=== PATIENT | female | born 1935 | race Caucasian/White ===

== ENCOUNTER 2017-06-05 08:46 | Inpatient (IN) | payer MEDICARE ==
[~2017-06-05] VITALS: Ht 152.4 cm; Wt 77.8 kg
[~2017-06-05 08:46] MED LIST: ALPHAGAN 10 ML10 ML OP; AMARYL4 MG PO; AMLODIPINE5 MG PO; ASPIRIN81 M1 PO; HYDROCODONE BIT1 T11 PO; LIVALO4 MG PO; LOSARTAN POTASS25 M1 PO; LUMIGAN 2.5 ML2.5 ML OPH; MELOXICAM15 MG PO; MULTIVITAMIN FO1 CAP PO; NOVOLOG FLEX100 U/ML; PRILOSEC10 MG PO; STOOL SOFTENER100 MG PO; SYSTANE 0.4%-0.1 SOL OP
[2017-06-05 08:54] VITALS: BP 148/78
[2017-06-05 10:33] LABS: BASO % 0.6 % (0.0-1.0); EOS # 0.1 10*3/uL (0.0-0.4); EOS % 1.8 % (1.0-4.0); HEMATOCRIT 36.3 % (37.0-47.0); HEMOGLOBIN 11.9 g/dl (12.0-16.0); LYMPH # 1.3 10*3/uL (1.3-4.4); LYMPH % 19.5 % (27.0-41.0); MEAN CELL VOLUME 99.2 fl (81.0-99.0); MEAN CORPUSCULAR HGB 32.5 pg (27.0-31.0); MEAN CORPUSCULAR HGB CONC 32.8 g/dl (33.0-37.0); MEAN PLATELET VOLUME 11.2 fl (9.6-12.3); MONO # 0.7 10*3/uL (0.1-1.0); MONO % 11.2 % (3.0-9.0); NEUT # 4.4 10*3/uL (2.3-7.9); NEUT % 66.4 % (47.0-73.0); PLATELET COUNT AUTOMATED 132 10*3/uL (130-400); RED BLOOD COUNT 3.66 10*6/uL (4.10-5.10); RED CELL DISTRI WIDTH 14.6 % (0-14.5); WHITE BLOOD COUNT 6.6 10*3/uL (4.8-10.8)
[2017-06-05 10:44] LABS: ACT PARTIAL THROMBO TIME 24.1 SECONDS (20.8-31.5); INTERNATIONAL NORM RATIO 0.9 (2.0-3.5)
[2017-06-05 10:48] LABS: ALBUMIN 3.3 gm/dl (3.1-4.5); CREATININE 1.33 mg/dL (0.55-1.02); POTASSIUM 4.4 mmol/L (3.5-5.1); TOTAL PROTEIN 6.5 gm/dL (6.4-8.2)
[2017-06-05] MEDS ORDERED: ALLOPURINOL100 MG PO (11:15)
[2017-06-05] MEDS ORDERED: LASIX40 MG PO (11:19)
[2017-06-05] MEDS ORDERED: TENORMIN25 M1 PO (11:19)
[2017-06-05] MEDS ORDERED: MAGNESIUM400 M1 PO (11:20)
[2017-06-05] MEDS ORDERED: LIPITOR10 MG PO (11:20)
[2017-06-05] MEDS ORDERED: NEURONTIN300 MG PO (11:21)
[2017-06-05] MEDS ORDERED: NEURONTIN600 MG PO (11:21)
[2017-06-05] MEDS ORDERED: NOVOLOG FL100 UNIT/1 SQ (11:22)
[2017-06-05] MEDS ORDERED: LANTUS SOL100 UNIT/1 SQ (11:22)
[2017-06-05] MEDS ORDERED: TRAD5TAB1 PO (11:23)
[2017-06-05] MEDS ORDERED: XALATAN 0.005%2.5 ML INTRAOC (11:23)
[2017-06-05] MEDS ORDERED: TRAMADOL HCL50 MG PO (11:25)
[2017-06-05] MEDS ORDERED: ARTHRITIS PAIN650 M3 PO (11:26)
[2017-06-05] MEDS ORDERED: COREG3.125 MG PO (12:17)
[2017-06-05] MEDS ORDERED: B121000 MCG/1 IM (12:31)
[2017-06-05 16:00] VITALS: BP 134/50
[2017-06-05 20:00] VITALS: BP 140/48
[2017-06-06] VITALS: BP 125/49
[2017-06-06 06:16] LABS: BASO % 0.6 % (0.0-1.0); EOS # 0.2 10*3/uL (0.0-0.4); HEMATOCRIT 34.4 % (37.0-47.0); HEMOGLOBIN 11.5 g/dl (12.0-16.0); LYMPH # 1.7 10*3/uL (1.3-4.4); LYMPH % 30.7 % (27.0-41.0); MEAN CELL VOLUME 99.4 fl (81.0-99.0); MEAN CORPUSCULAR HGB 33.2 pg (27.0-31.0); MEAN CORPUSCULAR HGB CONC 33.4 g/dl (33.0-37.0); MEAN PLATELET VOLUME 11.3 fl (9.6-12.3); MONO # 0.8 10*3/uL (0.1-1.0); MONO % 14.6 % (3.0-9.0); NEUT # 2.7 10*3/uL (2.3-7.9); NEUT % 50.7 % (47.0-73.0); PLATELET COUNT AUTOMATED 128 10*3/uL (130-400); RED BLOOD COUNT 3.46 10*6/uL (4.10-5.10); RED CELL DISTRI WIDTH 14.7 % (0-14.5); WHITE BLOOD COUNT 5.4 10*3/uL (4.8-10.8)
[2017-06-06 06:28] LABS: CREATININE 1.29 mg/dL (0.55-1.02); PHOSPHOROUS 3.3 mg/dL (2.5-4.9); POTASSIUM 4.2 mmol/L (3.5-5.1)
[2017-06-06 06:35] LABS: THYROID STIM HORMONE (HS) 0.72 uIU/ml (0.358-4.75)
[2017-06-06 07:48] LABS: VITAMIN D, 25-HYDROXY 27.1 ng/mL (30-100)
[2017-06-06 08:00] VITALS: BP 170/68
[2017-06-06 12:00] VITALS: BP 150/52
[2017-06-06 13:02] LABS: BILIRUBIN NEGATIVE (NEGATIVE); BLOOD NEGATIVE (NEGATIVE); CLARITY CLEAR (CLEAR); COLOR YELLOW (YELLOW); GLUCOSE NEGATIVE (NEGATIVE); KETONE NEGATIVE (NEGATIVE); LEUKO ESTERASE NEGATIVE (NEGATIVE); NITRITE NEGATIVE (NEGATIVE); PH 5.5 (5.0-9.0); SPECIFIC GRAVITY <= 1.005 (1.005-1.030); UROBILINOGEN 0.2 E.U./dl (0.2-1.0)
[2017-06-06 13:19] LABS: BACTERIA TRACE
[2017-06-06 16:00] VITALS: BP 128/41
[2017-06-06 20:00] VITALS: BP 131/49
[2017-06-07] VITALS: BP 118/49
[2017-06-07 08:00] VITALS: BP 118/43
[2017-06-07 12:00] VITALS: BP 111/52
[2017-06-07 16:00] VITALS: BP 118/41
[2017-06-07 20:00] VITALS: BP 108/42
[2017-06-08] VITALS: BP 118/49
[2017-06-08 07:46] LABS: BASO % 0.6 % (0.0-1.0); EOS # 0.2 10*3/uL (0.0-0.4); HEMATOCRIT 34.3 % (37.0-47.0); HEMOGLOBIN 11.4 g/dl (12.0-16.0); LYMPH # 2.1 10*3/uL (1.3-4.4); LYMPH % 29.8 % (27.0-41.0); MEAN CELL VOLUME 96.6 fl (81.0-99.0); MEAN CORPUSCULAR HGB 32.1 pg (27.0-31.0); MEAN CORPUSCULAR HGB CONC 33.2 g/dl (33.0-37.0); MEAN PLATELET VOLUME 11.9 fl (9.6-12.3); NEUT # 3.6 10*3/uL (2.3-7.9); NEUT % 52.3 % (47.0-73.0); PLATELET COUNT AUTOMATED 136 10*3/uL (130-400); RED BLOOD COUNT 3.55 10*6/uL (4.10-5.10); RED CELL DISTRI WIDTH 14.6 % (0-14.5); WHITE BLOOD COUNT 6.9 10*3/uL (4.8-10.8)
[2017-06-08 08:00] VITALS: BP 90/46
[2017-06-08 12:00] VITALS: BP 128/50
[2017-06-08 16:00] VITALS: BP 123/46
[2017-06-08 20:00] VITALS: BP 119/43
[2017-06-09] VITALS: BP 119/40
[2017-06-09 07:50] LABS: CREATININE 1.41 mg/dL (0.55-1.02)
[2017-06-09 08:00] VITALS: BP 102/78
[2017-06-09 12:00] VITALS: BP 120/52
[2017-06-09] MEDS ORDERED: Vitamin D PO (13:16)
[2017-06-09] MEDS ORDERED: TRAMADOL HCL50 MG PO (13:16)
== END 2017-06-09 15:48 | disposition other institution (70) | DRG 556 ==
LOC: ED 08:46 → 4E 10:10 → EDHOLD 10:10 → 4E 10:19
PROVIDERS: Emergency Medicine; Internal Medicine; Internal Medicine Nephrology; ADMIT Internal Medicine
DX: M25.551 Pain in right hip (principal); E11.22 Type 2 diabetes mellitus with diabetic chronic kidney disease; E11.49 Type 2 diabetes mellitus with other diabetic neurological complication; E11.65 Type 2 diabetes mellitus with hyperglycemia; D53.9 Nutritional anemia, unspecified; N18.3 Chronic kidney disease, stage 3 (moderate); D72.810 Lymphocytopenia; I25.10 Atherosclerotic heart disease of native coronary artery without angina pectoris; E78.5 Hyperlipidemia, unspecified; M1A.9XX0 Chronic gout, unspecified, without tophus (tophi); R26.2 Difficulty in walking, not elsewhere classified; I12.9 Hypertensive chronic kidney disease with stage 1 through stage 4 chronic kidney disease, or unspecified chronic kidney disease; E55.9 Vitamin D deficiency, unspecified; E66.09 Other obesity due to excess calories; E53.8 Deficiency of other specified B group vitamins; Z88.1 Allergy status to other antibiotic agents; Z79.4 Long term (current) use of insulin; Z88.2 Allergy status to sulfonamides; Z68.33 Body mass index [BMI] 33.0-33.9, adult; Z79.82 Long term (current) use of aspirin; Z88.8 Allergy status to other drugs, medicaments and biological substances; Z90.710 Acquired absence of both cervix and uterus; Z83.3 Family history of diabetes mellitus; Z82.49 Family history of ischemic heart disease and other diseases of the circulatory system; Z98.49 Cataract extraction status, unspecified eye; Z95.1 Presence of aortocoronary bypass graft; Z79.899 Other long term (current) drug therapy

== ENCOUNTER 2019-04-02 11:07 | Emergency (ER) | payer MEDICARE ==
[~2019-04-02] VITALS: Ht 152.4 cm; Wt 76.7 kg
[~2019-04-02 11:07] MED LIST changes: +ALLOPURINOL100 MG PO; +ARTHRITIS PAIN650 M3 PO; +B121000 MCG/1 IM; +COREG3.125 MG PO; +LANTUS SOL100 UNIT/1 SQ; +LASIX40 MG PO; +LIPITOR10 MG PO; +MAGNESIUM400 M1 PO; +NEURONTIN300 MG PO; +NEURONTIN600 MG PO; +NOVOLOG FL100 UNIT/1 SQ; +TENORMIN25 M1 PO; +TRAD5TAB1 PO; +TRAMADOL HCL50 MG PO; +Vitamin D PO; +XALATAN 0.005%2.5 ML INTRAOC
== END 2019-04-02 12:25 | disposition home or self-care (01) ==
LOC: ED 11:07
DX: S80.812A Abrasion, left lower leg, initial encounter (principal); E11.9 Type 2 diabetes mellitus without complications; Z88.8 Allergy status to other drugs, medicaments and biological substances; Z88.2 Allergy status to sulfonamides; Z79.899 Other long term (current) drug therapy; Z79.4 Long term (current) use of insulin; Z79.82 Long term (current) use of aspirin; Z90.710 Acquired absence of both cervix and uterus; Z90.49 Acquired absence of other specified parts of digestive tract; W18.40XA Slipping, tripping and stumbling without falling, unspecified, initial encounter; Y93.89 Activity, other specified; Y92.89 Other specified places as the place of occurrence of the external cause; Y99.8 Other external cause status

== ENCOUNTER → 2019-08-02 | Outpatient (CLI) | payer MEDICARE | END | disposition home or self-care (01) | LOC: LAB 11:59 | DX: E83.59 Other disorders of calcium metabolism (principal) ==

== ENCOUNTER 2020-07-24 11:15 | Inpatient (IN) | payer MEDICARE ==
[~2020-07-24] VITALS: Ht 149.9 cm; Wt 77.7 kg
[~2020-07-24 11:15] MED LIST changes: -NOVOLOG FL100 UNIT/1 SQ; +NOVOLOG FL100 UNIT/2 SC
[2020-07-24 11:17] VITALS: BP 151/58
[2020-07-24 11:59] LABS: BASO % 0.3 % (0.0-1.0); EOS # 0.1 10*3/uL (0.0-0.4); EOS % 1.8 % (1.0-4.0); HEMATOCRIT 35.2 % (37.0-47.0); LYMPH # 1.4 10*3/uL (1.3-4.4); LYMPH % 22.6 % (27.0-41.0); MEAN CELL VOLUME 100.3 fl (81.0-99.0); MEAN CORPUSCULAR HGB 31.9 pg (27.0-31.0); MEAN CORPUSCULAR HGB CONC 31.8 g/dl (33.0-37.0); MEAN PLATELET VOLUME 11.6 fl (9.6-12.3); MONO # 0.7 10*3/uL (0.1-1.0); NEUT # 3.9 10*3/uL (2.3-7.9); NEUT % 63.8 % (47.0-73.0); PLATELET COUNT AUTOMATED 150 10*3/uL (130-400); RED BLOOD COUNT 3.51 10*6/uL (4.10-5.10); RED CELL DISTRI WIDTH 13.9 % (0-14.5); WHITE BLOOD COUNT 6.1 10*3/uL (4.8-10.8)
[2020-07-24 12:09] LABS: ACT PARTIAL THROMBO TIME 23.6 SECONDS (20.0-32.1); INTERNATIONAL NORM RATIO 0.9 (2.0-3.5)
[2020-07-24 12:16] LABS: ALBUMIN 3.5 gm/dl (3.1-4.5); ALKALINE PHOSPHATASE 68 U/L (45-117); BUN 40 mg/dl (7-24); CHLORIDE 107 mmol/L (98-107); CREATININE 1.44 mg/dL (0.55-1.02); LIPASE 75 U/L (73-393); POTASSIUM 4.6 mmol/L (3.5-5.1); SGOT/AST 11 IU/L (3-35); SGPT/ALT 25 U/L (12-78); SODIUM 138 mmol/L (136-145); TOTAL PROTEIN 6.5 gm/dL (6.4-8.2); TROPONIN I 0.018 ng/ml (<0.045)
[2020-07-24 13:07] LABS: BILIRUBIN Negative (Negative); BLOOD Negative (Negative); CLARITY Clear (Clear); COLOR Yellow (Yellow); GLUCOSE 1+ (Negative); KETONE Negative (Negative); LEUKO ESTERASE 1+ (Negative); NITRITE Negative (Negative); PH 7.5 (4.5-8.0); SPECIFIC GRAVITY 1.015 (1.001-1.030); UROBILINOGEN 0.2 E.U./dl (0.0-1.0)
[2020-07-24 13:30] LABS: BACTERIA 3+; EPITHELIAL CELLS 0-2
[2020-07-24] MEDS ORDERED: PREDNISONE20 M1 PO ×2 (13:37)
[2020-07-24] MEDS ORDERED: MACROBID100 M1 PO ×2 (13:37)
[2020-07-24 14:00] VITALS: BP 138/62
[2020-07-24 16:00] VITALS: BP 135/52
[2020-07-24] MEDS ORDERED: TYLENOL EXTRA500 MG PO (17:58)
[2020-07-24] MEDS ORDERED: CARVEDILOL3.125 MG PO (17:59)
[2020-07-24] MEDS ORDERED: HYDROCODONE-AC1 EAC1 PO (18:02)
[2020-07-24] MEDS ORDERED: VITAMIN D325 MCG PO (18:03)
[2020-07-24] MEDS ORDERED: ONDANSETRON HYDR4 MG PO (18:05)
[2020-07-24] MEDS ORDERED: VALSARTAN-HCTZ1 EAC2 PO (18:07)
[2020-07-24] MEDS ORDERED: MAGNESIUM OXID250 M2 PO (18:09)
[2020-07-24] MEDS ORDERED: LANTUS SOL100 UNIT/1 SC (18:12)
[2020-07-24 20:00] VITALS: BP 141/54
[2020-07-25] VITALS: BP 134/59
[2020-07-25 07:18] LABS: HEMATOCRIT 35.5 % (37.0-47.0); LYMPH # 1.2 10*3/uL (1.3-4.4); MEAN CELL VOLUME 100.3 fl (81.0-99.0); MEAN CORPUSCULAR HGB 31.6 pg (27.0-31.0); MEAN CORPUSCULAR HGB CONC 31.5 g/dl (33.0-37.0); MEAN PLATELET VOLUME 12.5 fl (9.6-12.3); MONO # 0.1 10*3/uL (0.1-1.0); MONO % 1.4 % (3.0-9.0); NEUT # 7.1 10*3/uL (2.3-7.9); PLATELET COUNT AUTOMATED 166 10*3/uL (130-400); RED BLOOD COUNT 3.54 10*6/uL (4.10-5.10); RED CELL DISTRI WIDTH 13.5 % (0-14.5); WHITE BLOOD COUNT 8.4 10*3/uL (4.8-10.8)
[2020-07-25 07:40] LABS: ALBUMIN 3.3 gm/dl (3.1-4.5); CREATININE 1.46 mg/dL (0.55-1.02); POTASSIUM 4.8 mmol/L (3.5-5.1); TOTAL PROTEIN 6.2 gm/dL (6.4-8.2)
[2020-07-25 07:46] LABS: FREE T4 1.12 ng/dl (0.76-1.46); THYROID STIM HORMONE (HS) 0.15 uIU/ml (0.358-4.75)
[2020-07-25 08:00] VITALS: BP 131/94
[2020-07-25 08:13] LABS: VITAMIN D, 25-HYDROXY 52.8 ng/mL (30-100)
[2020-07-25 10:20] VITALS: BP 132/68
[2020-07-25 12:00] VITALS: BP 116/40
[2020-07-25 16:00] VITALS: BP 110/51
[2020-07-25 20:00] VITALS: BP 112/51
[2020-07-26] VITALS: BP 110/44
[2020-07-26 08:00] VITALS: BP 105/43
[2020-07-26 08:51] VITALS: BP 110/50
[2020-07-26 12:00] VITALS: BP 149/52
[2020-07-26 16:00] VITALS: BP 137/53
[2020-07-26 20:00] VITALS: BP 107/40
[2020-07-27] VITALS: BP 102/45
[2020-07-27 08:00] VITALS: BP 141/47
[2020-07-27 11:30] LABS: BILIRUBIN Negative (Negative); BLOOD Negative (Negative); CLARITY Clear (Clear); COLOR Yellow (Yellow); GLUCOSE Trace (Negative); KETONE Negative (Negative); LEUKO ESTERASE Negative (Negative); NITRITE Negative (Negative); SPECIFIC GRAVITY 1.015 (1.001-1.030); UROBILINOGEN 0.2 E.U./dl (0.0-1.0)
[2020-07-27 11:38] LABS: EPITHELIAL CELLS 0-2
[2020-07-27] MEDS ORDERED: OMNICEF300 MG PO ×2 (11:59)
[2020-07-27 12:00] VITALS: BP 145/52
== END 2020-07-27 12:56 | disposition home health service (06) | DRG 551 ==
LOC: ED 11:15 → EDHOLD 14:31 → 5E 14:31
PROVIDERS: Physician Assistant; Registered Nurse; ADMIT Internal Medicine; ATTEND Internal Medicine
DX: M54.5 Low back pain (principal); N17.0 Acute kidney failure with tubular necrosis; N30.00 Acute cystitis without hematuria; E44.0 Moderate protein-calorie malnutrition; I13.0 Hypertensive heart and chronic kidney disease with heart failure and stage 1 through stage 4 chronic kidney disease, or unspecified chronic kidney disease; M48.00 Spinal stenosis, site unspecified; N18.32 Chronic kidney disease, stage 3b; E11.40 Type 2 diabetes mellitus with diabetic neuropathy, unspecified; E11.65 Type 2 diabetes mellitus with hyperglycemia; I25.10 Atherosclerotic heart disease of native coronary artery without angina pectoris; E78.2 Mixed hyperlipidemia; K21.9 Gastro-esophageal reflux disease without esophagitis; M10.9 Gout, unspecified; R26.2 Difficulty in walking, not elsewhere classified; E11.22 Type 2 diabetes mellitus with diabetic chronic kidney disease; B96.1 Klebsiella pneumoniae [K. pneumoniae] as the cause of diseases classified elsewhere; M54.9 Dorsalgia, unspecified; I50.9 Heart failure, unspecified; Z88.2 Allergy status to sulfonamides; Z79.4 Long term (current) use of insulin; Z88.8 Allergy status to other drugs, medicaments and biological substances; Z90.710 Acquired absence of both cervix and uterus; Z90.49 Acquired absence of other specified parts of digestive tract; Z95.1 Presence of aortocoronary bypass graft; Z98.49 Cataract extraction status, unspecified eye; Z83.3 Family history of diabetes mellitus; Z82.49 Family history of ischemic heart disease and other diseases of the circulatory system

== ENCOUNTER 2020-08-19 10:23 | Inpatient (IN) | payer MEDICARE ==
[~2020-08-19] VITALS: Ht 152.4 cm; Wt 75.8 kg
[~2020-08-19 10:23] MED LIST changes: +CARVEDILOL3.125 MG PO; +HYDROCODONE-AC1 EAC1 PO; +LANTUS SOL100 UNIT/1 SC; +MACROBID100 M1 PO; +MAGNESIUM OXID250 M2 PO; +OMNICEF300 MG PO; +ONDANSETRON HYDR4 MG PO; +PREDNISONE20 M1 PO; +TYLENOL EXTRA500 MG PO; +VALSARTAN-HCTZ1 EAC2 PO; +VITAMIN D325 MCG PO
[2020-08-19 10:28] VITALS: BP 145/48
[2020-08-19 11:04] LABS: BASO % 0.3 % (0.0-1.0); EOS # 0.1 10*3/uL (0.0-0.4); EOS % 2.2 % (1.0-4.0); HEMATOCRIT 32.4 % (37.0-47.0); LYMPH # 1.8 10*3/uL (1.3-4.4); LYMPH % 30.4 % (27.0-41.0); MEAN CELL VOLUME 101.6 fl (81.0-99.0); MEAN CORPUSCULAR HGB 32.3 pg (27.0-31.0); MEAN CORPUSCULAR HGB CONC 31.8 g/dl (33.0-37.0); MEAN PLATELET VOLUME 11.3 fl (9.6-12.3); MONO # 0.8 10*3/uL (0.1-1.0); MONO % 14.4 % (3.0-9.0); NEUT % 52.4 % (47.0-73.0); PLATELET COUNT AUTOMATED 161 10*3/uL (130-400); RED BLOOD COUNT 3.19 10*6/uL (4.10-5.10); RED CELL DISTRI WIDTH 14.5 % (0-14.5); WHITE BLOOD COUNT 5.8 10*3/uL (4.8-10.8)
[2020-08-19 11:07] LABS: CREATININE 2.03 mg/dL (0.55-1.02); POTASSIUM 4.7 mmol/L (3.5-5.1)
[2020-08-19 11:08] LABS: ACT PARTIAL THROMBO TIME 24.6 SECONDS (20.0-32.1); INTERNATIONAL NORM RATIO 0.9 (2.0-3.5)
[2020-08-19] MEDS ORDERED: LORAZEPAM0.5 MG PO (13:20)
[2020-08-19 13:50] VITALS: BP 144/54
[2020-08-19] MEDS ORDERED: MEDIHONEY15 ML T (14:25)
[2020-08-19 15:10] LABS: BILIRUBIN Negative (Negative); BLOOD Negative (Negative); CLARITY Clear (Clear); COLOR Yellow (Yellow); GLUCOSE Negative (Negative); KETONE Negative (Negative); LEUKO ESTERASE 2+ (Negative); NITRITE Negative (Negative); PH 7.5 (4.5-8.0); UROBILINOGEN 0.2 E.U./dl (0.0-1.0)
[2020-08-19 15:16] LABS: BACTERIA 2+; RBC 0-2 rbc/hpf (0-2); WBC 16-20 wbc/hpf (0-5)
[2020-08-19 16:00] VITALS: BP 147/59
[2020-08-19 20:00] VITALS: BP 125/46
[2020-08-20] VITALS: BP 154/74
[2020-08-20 05:59] LABS: ALBUMIN 2.8 gm/dl (3.1-4.5); BASO % 0.3 % (0.0-1.0); CREATININE 1.69 mg/dL (0.55-1.02); EOS # 0.1 10*3/uL (0.0-0.4); EOS % 1.7 % (1.0-4.0); HEMATOCRIT 29.7 % (37.0-47.0); LYMPH # 1.6 10*3/uL (1.3-4.4); LYMPH % 22.2 % (27.0-41.0); MEAN CELL VOLUME 103.8 fl (81.0-99.0); MEAN CORPUSCULAR HGB 32.9 pg (27.0-31.0); MEAN CORPUSCULAR HGB CONC 31.6 g/dl (33.0-37.0); MEAN PLATELET VOLUME 12.1 fl (9.6-12.3); MONO # 0.9 10*3/uL (0.1-1.0); MONO % 13.3 % (3.0-9.0); NEUT # 4.3 10*3/uL (2.3-7.9); NEUT % 62.1 % (47.0-73.0); PLATELET COUNT AUTOMATED 161 10*3/uL (130-400); POTASSIUM 4.5 mmol/L (3.5-5.1); RED BLOOD COUNT 2.86 10*6/uL (4.10-5.10); RED CELL DISTRI WIDTH 14.6 % (0-14.5); TOTAL PROTEIN 5.2 gm/dL (6.4-8.2)
[2020-08-20 06:06] LABS: THYROID STIM HORMONE (HS) 0.386 uIU/ml (0.358-4.75)
[2020-08-20 06:20] LABS: ACT PARTIAL THROMBO TIME 24.5 SECONDS (20.0-32.1); INTERNATIONAL NORM RATIO 0.9 (2.0-3.5)
[2020-08-20 08:00] VITALS: BP 115/43
[2020-08-20 08:17] LABS: VITAMIN D, 25-HYDROXY 41.8 ng/mL (30-100)
[2020-08-20 12:00] VITALS: BP 118/48
[2020-08-20 16:00] VITALS: BP 139/41
[2020-08-20 20:00] VITALS: BP 133/43
[2020-08-21] VITALS: BP 134/55
[2020-08-21 06:48] LABS: BASO % 0.4 % (0.0-1.0); EOS # 0.2 10*3/uL (0.0-0.4); EOS % 2.8 % (1.0-4.0); HEMATOCRIT 29.1 % (37.0-47.0); LYMPH # 1.8 10*3/uL (1.3-4.4); LYMPH % 32.1 % (27.0-41.0); MEAN CELL VOLUME 102.5 fl (81.0-99.0); MEAN CORPUSCULAR HGB 32.4 pg (27.0-31.0); MEAN CORPUSCULAR HGB CONC 31.6 g/dl (33.0-37.0); MEAN PLATELET VOLUME 11.8 fl (9.6-12.3); MONO # 0.6 10*3/uL (0.1-1.0); MONO % 11.2 % (3.0-9.0); NEUT % 53.1 % (47.0-73.0); PLATELET COUNT AUTOMATED 158 10*3/uL (130-400); RED BLOOD COUNT 2.84 10*6/uL (4.10-5.10); RED CELL DISTRI WIDTH 14.6 % (0-14.5); WHITE BLOOD COUNT 5.6 10*3/uL (4.8-10.8)
[2020-08-21 07:27] LABS: CREATININE 1.21 mg/dL (0.55-1.02); POTASSIUM 4.1 mmol/L (3.5-5.1)
[2020-08-21 08:00] VITALS: BP 158/48
[2020-08-21 12:00] VITALS: BP 164/45
[2020-08-21 16:00] VITALS: BP 145/52
[2020-08-21 20:00] VITALS: BP 148/50
[2020-08-22] VITALS: BP 118/40
[2020-08-22 06:19] LABS: BASO % 0.2 % (0.0-1.0); EOS # 0.2 10*3/uL (0.0-0.4); EOS % 3.7 % (1.0-4.0); HEMATOCRIT 29.7 % (37.0-47.0); LYMPH # 1.9 10*3/uL (1.3-4.4); LYMPH % 30.1 % (27.0-41.0); MEAN CORPUSCULAR HGB 32.7 pg (27.0-31.0); MEAN CORPUSCULAR HGB CONC 32.3 g/dl (33.0-37.0); MEAN PLATELET VOLUME 11.8 fl (9.6-12.3); MONO # 0.8 10*3/uL (0.1-1.0); NEUT # 3.2 10*3/uL (2.3-7.9); NEUT % 52.5 % (47.0-73.0); PLATELET COUNT AUTOMATED 155 10*3/uL (130-400); RED BLOOD COUNT 2.94 10*6/uL (4.10-5.10); RED CELL DISTRI WIDTH 14.6 % (0-14.5); WHITE BLOOD COUNT 6.2 10*3/uL (4.8-10.8)
[2020-08-22 06:30] LABS: CREATININE 1.18 mg/dL (0.55-1.02)
[2020-08-22 08:00] VITALS: BP 145/54
[2020-08-22] MEDS ORDERED: DIOVAN160 M2 PO (08:52)
[2020-08-22] MEDS ORDERED: LASIX40 MG PO (08:53)
[2020-08-22 12:00] VITALS: BP 160/56
[2020-08-22] MEDS ORDERED: AMPICILLIN500 MG PO (12:02)
[2020-08-22] MEDS ORDERED: ONDANSETRON HYDR4 MG PO (12:05)
== END 2020-08-22 13:21 | disposition home health service (06) | DRG 689 ==
LOC: ED 10:23 → 4E 11:41 → EDHOLD 11:41 → 4E 13:57
PROVIDERS: Emergency Medicine; Hospitalist; Internal Medicine; Student in an Organized Health Care Education/Training Program; ADMIT Internal Medicine; ATTEND Internal Medicine
DX: N39.0 Urinary tract infection, site not specified (principal); N17.0 Acute kidney failure with tubular necrosis; I50.22 Chronic systolic (congestive) heart failure; I13.0 Hypertensive heart and chronic kidney disease with heart failure and stage 1 through stage 4 chronic kidney disease, or unspecified chronic kidney disease; E44.0 Moderate protein-calorie malnutrition; T50.905A Adverse effect of unspecified drugs, medicaments and biological substances, initial encounter; N18.31 Chronic kidney disease, stage 3a; E86.0 Dehydration; M1A.9XX0 Chronic gout, unspecified, without tophus (tophi); E11.42 Type 2 diabetes mellitus with diabetic polyneuropathy; I95.1 Orthostatic hypotension; E53.8 Deficiency of other specified B group vitamins; K21.9 Gastro-esophageal reflux disease without esophagitis; W19.XXXA Unspecified fall, initial encounter; I25.10 Atherosclerotic heart disease of native coronary artery without angina pectoris; E11.22 Type 2 diabetes mellitus with diabetic chronic kidney disease; D53.9 Nutritional anemia, unspecified; E11.65 Type 2 diabetes mellitus with hyperglycemia; E87.8 Other disorders of electrolyte and fluid balance, not elsewhere classified; R26.2 Difficulty in walking, not elsewhere classified; E78.2 Mixed hyperlipidemia; E55.9 Vitamin D deficiency, unspecified; Y93.89 Activity, other specified; Y92.89 Other specified places as the place of occurrence of the external cause; Y99.8 Other external cause status; Z90.49 Acquired absence of other specified parts of digestive tract; Z90.710 Acquired absence of both cervix and uterus; Z95.1 Presence of aortocoronary bypass graft; Z88.8 Allergy status to other drugs, medicaments and biological substances; Z88.2 Allergy status to sulfonamides

== ENCOUNTER 2021-09-28 09:23 | Emergency (ER) | payer MEDICARE ==
[~2021-09-28] VITALS: Ht 180.3 cm; Wt 73.0 kg
[~2021-09-28 09:23] MED LIST changes: +AMPICILLIN500 MG PO; +DIOVAN160 M2 PO; +LORAZEPAM0.5 MG PO; +MEDIHONEY15 ML T; +OMEPRAZOLE20 M2 PO; +SYSTANE 0.3-0.415 ML OU
[2021-09-28] MEDS ORDERED: PREDNISONE50 MG PO (11:50)
== END 2021-09-28 12:10 | disposition home or self-care (01) ==
LOC: ED 09:23
DX: M46.1 Sacroiliitis, not elsewhere classified (principal); Z88.8 Allergy status to other drugs, medicaments and biological substances; Z79.899 Other long term (current) drug therapy; Z79.82 Long term (current) use of aspirin; Z90.710 Acquired absence of both cervix and uterus; Z90.49 Acquired absence of other specified parts of digestive tract; Z95.1 Presence of aortocoronary bypass graft

== ENCOUNTER → 2022-07-22 | Outpatient (CLI) | payer MEDICARE ==
[~2022-07-22] MED LIST changes: +PREDNISONE50 MG PO
[2022-07-22 13:48] LABS: BILIRUBIN Negative (Negative); BLOOD Trace-Intact (Negative); CLARITY Turbid (Clear); COLOR Yellow (Yellow); GLUCOSE Negative (Negative); KETONE Negative (Negative); LEUKO ESTERASE 3+ (Negative); NITRITE Negative (Negative); SPECIFIC GRAVITY 1.015 (1.001-1.030)
[2022-07-22 15:02] LABS: BACTERIA 3+; WBC TNTC wbc/hpf (0-5)
== END | disposition home or self-care (01) ==
LOC: LAB 11:27
PROVIDERS: ATTEND Nurse Practitioner Family
DX: R30.0 Dysuria (principal)

== ENCOUNTER → 2023-02-18 | Outpatient (CLI) | payer MEDICARE ==
[~2023-02-18] MED LIST changes: +CEPHALEXIN250 M1 PO; +CO Q10100 MG PO; +COREG12.5 M1 PO; +COREG25 MG PO; +FUROSEMIDE40 MG PO; +GEMTESA75 MG PO; +HYDRALAZINE HYD50 MG PO; +HYDRALAZINE10 MG PO; +HYDROCHLOROTHIA25 M1 PO; +IMDUR SA30 MG PO; +LIPITOR40 MG PO; +MAGNESIUM OXID400 MG PO; +MEDROL DOSEPAK4 MG PO; +MIRALAX17 GM PO; +MUCINEX ER600 MG PO; +OMEPRAZOLE40 MG PO; +ZUPLENZ4 M1 PO
== END | disposition home or self-care (01) ==
LOC: US 02-12 12:30
PROVIDERS: ATTEND Family Medicine
DX: N63.11 Unspecified lump in the right breast, upper outer quadrant (principal); D49.2 Neoplasm of unspecified behavior of bone, soft tissue, and skin

== ENCOUNTER 2023-09-09 11:01 | Emergency (ER) | payer MEDICARE ==
[~2023-09-09] VITALS: Ht 149.8 cm; Wt 72.1 kg
[2023-09-09] MEDS ORDERED: Bacitracin Zinc 14 GM TUBE T ONE (11:20)
[2023-09-09] MEDS ORDERED: Tdap Vaccine 0.5 ML SYR (Adult Vaccine) IM ONE (11:20)
== END 2023-09-09 12:25 | disposition home or self-care (01) ==
LOC: ED 11:01
DX: S81.811A Laceration without foreign body, right lower leg, initial encounter (principal); E87.6 Hypokalemia; D64.9 Anemia, unspecified; I25.10 Atherosclerotic heart disease of native coronary artery without angina pectoris; I50.9 Heart failure, unspecified; K21.9 Gastro-esophageal reflux disease without esophagitis; E78.5 Hyperlipidemia, unspecified; E11.22 Type 2 diabetes mellitus with diabetic chronic kidney disease; I13.0 Hypertensive heart and chronic kidney disease with heart failure and stage 1 through stage 4 chronic kidney disease, or unspecified chronic kidney disease; N18.4 Chronic kidney disease, stage 4 (severe); I25.2 Old myocardial infarction; M19.90 Unspecified osteoarthritis, unspecified site; M10.9 Gout, unspecified; Z88.8 Allergy status to other drugs, medicaments and biological substances; Z88.2 Allergy status to sulfonamides; Z90.49 Acquired absence of other specified parts of digestive tract; Z90.710 Acquired absence of both cervix and uterus; Z98.890 Other specified postprocedural states; W01.0XXA Fall on same level from slipping, tripping and stumbling without subsequent striking against object, initial encounter; Y93.89 Activity, other specified; Y92.89 Other specified places as the place of occurrence of the external cause; Y99.8 Other external cause status

== ENCOUNTER → 2023-09-11 | Outpatient (CLI) | payer MEDICARE | END | disposition home or self-care (01) | LOC: WOUNDCARE 01:57 | PROVIDERS: ATTEND Nurse Practitioner Family | DX: S81.811A Laceration without foreign body, right lower leg, initial encounter (principal); S81.801A Unspecified open wound, right lower leg, initial encounter; I87.2 Venous insufficiency (chronic) (peripheral); I13.0 Hypertensive heart and chronic kidney disease with heart failure and stage 1 through stage 4 chronic kidney disease, or unspecified chronic kidney disease; E11.22 Type 2 diabetes mellitus with diabetic chronic kidney disease; N18.30 Chronic kidney disease, stage 3 unspecified; I50.9 Heart failure, unspecified; K21.9 Gastro-esophageal reflux disease without esophagitis; E78.5 Hyperlipidemia, unspecified; M48.00 Spinal stenosis, site unspecified; I25.10 Atherosclerotic heart disease of native coronary artery without angina pectoris; Z90.49 Acquired absence of other specified parts of digestive tract; Z90.710 Acquired absence of both cervix and uterus; Z98.49 Cataract extraction status, unspecified eye; Z95.1 Presence of aortocoronary bypass graft; X58.XXXA Exposure to other specified factors, initial encounter; Y93.89 Activity, other specified; Y92.89 Other specified places as the place of occurrence of the external cause; Y99.8 Other external cause status ==

== ENCOUNTER → 2023-09-15 | Outpatient (CLI) | payer MEDICARE | END | disposition home or self-care (01) | LOC: WOUNDCARE 00:23 | PROVIDERS: ATTEND Nurse Practitioner Family | DX: S81.811D Laceration without foreign body, right lower leg, subsequent encounter (principal); S81.801D Unspecified open wound, right lower leg, subsequent encounter; I87.2 Venous insufficiency (chronic) (peripheral); I13.0 Hypertensive heart and chronic kidney disease with heart failure and stage 1 through stage 4 chronic kidney disease, or unspecified chronic kidney disease; E11.22 Type 2 diabetes mellitus with diabetic chronic kidney disease; N18.30 Chronic kidney disease, stage 3 unspecified; I50.9 Heart failure, unspecified; K21.9 Gastro-esophageal reflux disease without esophagitis; E78.5 Hyperlipidemia, unspecified; M48.00 Spinal stenosis, site unspecified; I25.10 Atherosclerotic heart disease of native coronary artery without angina pectoris; Z90.49 Acquired absence of other specified parts of digestive tract; Z90.710 Acquired absence of both cervix and uterus; Z98.49 Cataract extraction status, unspecified eye; Z95.1 Presence of aortocoronary bypass graft; Z79.4 Long term (current) use of insulin; Z79.82 Long term (current) use of aspirin; Z79.899 Other long term (current) drug therapy; X58.XXXD Exposure to other specified factors, subsequent encounter ==

== ENCOUNTER → 2023-09-22 | Outpatient (CLI) | payer MEDICARE | END | disposition home or self-care (01) | LOC: WOUNDCARE 01:59 | PROVIDERS: ATTEND Nurse Practitioner Family | DX: S81.811D Laceration without foreign body, right lower leg, subsequent encounter (principal); S81.801D Unspecified open wound, right lower leg, subsequent encounter; I87.2 Venous insufficiency (chronic) (peripheral); I13.0 Hypertensive heart and chronic kidney disease with heart failure and stage 1 through stage 4 chronic kidney disease, or unspecified chronic kidney disease; E11.22 Type 2 diabetes mellitus with diabetic chronic kidney disease; N18.30 Chronic kidney disease, stage 3 unspecified; I50.9 Heart failure, unspecified; K21.9 Gastro-esophageal reflux disease without esophagitis; E78.5 Hyperlipidemia, unspecified; M48.00 Spinal stenosis, site unspecified; I25.10 Atherosclerotic heart disease of native coronary artery without angina pectoris; Z85.51 Personal history of malignant neoplasm of bladder; Z95.1 Presence of aortocoronary bypass graft; Z90.49 Acquired absence of other specified parts of digestive tract; Z90.710 Acquired absence of both cervix and uterus; Z98.49 Cataract extraction status, unspecified eye; Z98.890 Other specified postprocedural states; Z79.4 Long term (current) use of insulin; Z79.82 Long term (current) use of aspirin; Z79.899 Other long term (current) drug therapy; X58.XXXD Exposure to other specified factors, subsequent encounter ==

== ENCOUNTER → 2023-09-29 | Outpatient (CLI) | payer MEDICARE | END | disposition home or self-care (01) | LOC: WOUNDCARE 00:29 | PROVIDERS: ATTEND Nurse Practitioner Family | DX: S81.811D Laceration without foreign body, right lower leg, subsequent encounter (principal); S81.801D Unspecified open wound, right lower leg, subsequent encounter; E11.22 Type 2 diabetes mellitus with diabetic chronic kidney disease; I13.0 Hypertensive heart and chronic kidney disease with heart failure and stage 1 through stage 4 chronic kidney disease, or unspecified chronic kidney disease; N18.30 Chronic kidney disease, stage 3 unspecified; I50.9 Heart failure, unspecified; E11.622 Type 2 diabetes mellitus with other skin ulcer; L98.491 Non-pressure chronic ulcer of skin of other sites limited to breakdown of skin; L97.812 Non-pressure chronic ulcer of other part of right lower leg with fat layer exposed; I25.10 Atherosclerotic heart disease of native coronary artery without angina pectoris; I87.2 Venous insufficiency (chronic) (peripheral); E78.5 Hyperlipidemia, unspecified; M48.00 Spinal stenosis, site unspecified; K21.9 Gastro-esophageal reflux disease without esophagitis; Z85.51 Personal history of malignant neoplasm of bladder; Z90.49 Acquired absence of other specified parts of digestive tract; Z90.710 Acquired absence of both cervix and uterus; Z95.1 Presence of aortocoronary bypass graft; Z98.49 Cataract extraction status, unspecified eye; Z79.4 Long term (current) use of insulin; Z79.82 Long term (current) use of aspirin; Z79.899 Other long term (current) drug therapy; X58.XXXD Exposure to other specified factors, subsequent encounter ==

== ENCOUNTER → 2023-10-06 | Outpatient (CLI) | payer MEDICARE | END | disposition home or self-care (01) | LOC: WOUNDCARE 10-05 08:37 | PROVIDERS: ATTEND Nurse Practitioner Family | DX: S81.811D Laceration without foreign body, right lower leg, subsequent encounter (principal); S81.801D Unspecified open wound, right lower leg, subsequent encounter; E11.622 Type 2 diabetes mellitus with other skin ulcer; L97.812 Non-pressure chronic ulcer of other part of right lower leg with fat layer exposed; E11.22 Type 2 diabetes mellitus with diabetic chronic kidney disease; I13.0 Hypertensive heart and chronic kidney disease with heart failure and stage 1 through stage 4 chronic kidney disease, or unspecified chronic kidney disease; N18.30 Chronic kidney disease, stage 3 unspecified; I50.9 Heart failure, unspecified; I25.10 Atherosclerotic heart disease of native coronary artery without angina pectoris; I87.2 Venous insufficiency (chronic) (peripheral); E78.5 Hyperlipidemia, unspecified; M48.00 Spinal stenosis, site unspecified; K21.9 Gastro-esophageal reflux disease without esophagitis; Z85.51 Personal history of malignant neoplasm of bladder; Z90.49 Acquired absence of other specified parts of digestive tract; Z90.710 Acquired absence of both cervix and uterus; Z95.1 Presence of aortocoronary bypass graft; Z98.49 Cataract extraction status, unspecified eye; Z79.4 Long term (current) use of insulin; Z79.82 Long term (current) use of aspirin; Z79.899 Other long term (current) drug therapy; X58.XXXD Exposure to other specified factors, subsequent encounter ==

== ENCOUNTER → 2023-10-13 | Outpatient (CLI) | payer MEDICARE | END | disposition home or self-care (01) | LOC: WOUNDCARE | PROVIDERS: ATTEND Nurse Practitioner Family | DX: S81.811D Laceration without foreign body, right lower leg, subsequent encounter (principal); S81.801D Unspecified open wound, right lower leg, subsequent encounter; E11.622 Type 2 diabetes mellitus with other skin ulcer; L97.812 Non-pressure chronic ulcer of other part of right lower leg with fat layer exposed; E11.22 Type 2 diabetes mellitus with diabetic chronic kidney disease; I13.0 Hypertensive heart and chronic kidney disease with heart failure and stage 1 through stage 4 chronic kidney disease, or unspecified chronic kidney disease; N18.30 Chronic kidney disease, stage 3 unspecified; I50.9 Heart failure, unspecified; I25.10 Atherosclerotic heart disease of native coronary artery without angina pectoris; I87.2 Venous insufficiency (chronic) (peripheral); E78.5 Hyperlipidemia, unspecified; M48.00 Spinal stenosis, site unspecified; K21.9 Gastro-esophageal reflux disease without esophagitis; Z85.51 Personal history of malignant neoplasm of bladder; Z90.49 Acquired absence of other specified parts of digestive tract; Z90.710 Acquired absence of both cervix and uterus; Z95.1 Presence of aortocoronary bypass graft; Z98.49 Cataract extraction status, unspecified eye; Z79.4 Long term (current) use of insulin; Z79.82 Long term (current) use of aspirin; Z79.899 Other long term (current) drug therapy; X58.XXXD Exposure to other specified factors, subsequent encounter ==

== ENCOUNTER → 2023-10-20 | Outpatient (CLI) | payer MEDICARE ==
[~2023-10-20] MED LIST changes: +FLONASE ALLERG9.9 ML NAS; +PEPCID40 MG PO; +TRESIBA100 UNIT/1 SQ
== END | disposition home or self-care (01) ==
LOC: WOUNDCARE 03:59
PROVIDERS: ATTEND Nurse Practitioner Family
DX: S81.811D Laceration without foreign body, right lower leg, subsequent encounter (principal); S81.801D Unspecified open wound, right lower leg, subsequent encounter; E11.622 Type 2 diabetes mellitus with other skin ulcer; L97.812 Non-pressure chronic ulcer of other part of right lower leg with fat layer exposed; E11.22 Type 2 diabetes mellitus with diabetic chronic kidney disease; I13.0 Hypertensive heart and chronic kidney disease with heart failure and stage 1 through stage 4 chronic kidney disease, or unspecified chronic kidney disease; N18.30 Chronic kidney disease, stage 3 unspecified; I50.9 Heart failure, unspecified; I25.10 Atherosclerotic heart disease of native coronary artery without angina pectoris; I87.2 Venous insufficiency (chronic) (peripheral); E78.5 Hyperlipidemia, unspecified; M48.00 Spinal stenosis, site unspecified; K21.9 Gastro-esophageal reflux disease without esophagitis; Z85.51 Personal history of malignant neoplasm of bladder; Z95.1 Presence of aortocoronary bypass graft; Z90.49 Acquired absence of other specified parts of digestive tract; Z90.710 Acquired absence of both cervix and uterus; Z98.49 Cataract extraction status, unspecified eye; Z79.4 Long term (current) use of insulin; Z79.82 Long term (current) use of aspirin; Z79.899 Other long term (current) drug therapy; X58.XXXD Exposure to other specified factors, subsequent encounter

== ENCOUNTER 2023-10-25 11:44 | Inpatient (IN) | payer MEDICARE ==
[~2023-10-25] VITALS: Ht 149.9 cm; Wt 80.8 kg
[~2023-10-25 11:44] MED LIST changes: -FLONASE ALLERG9.9 ML NAS; -PEPCID40 MG PO; -TRESIBA100 UNIT/1 SQ
[2023-10-25 12:27] VITALS: BP 158/53
[2023-10-25] MEDS ORDERED: FUROSEMIDE 40 MG/4 ML VIAL IV ONE (12:30)
[2023-10-25 12:49] LABS: BASO % 0.4 % (0.0-1.0); EOS # 0.2 10*3/uL (0.0-0.4); EOS % 2.6 % (1.0-4.0); HEMATOCRIT 29.5 % (37.0-47.0); LYMPH # 1.1 10*3/uL (1.3-4.4); LYMPH % 19.1 % (27.0-41.0); MEAN CELL VOLUME 104.6 fl (81.0-99.0); MEAN CORPUSCULAR HGB CONC 32.5 g/dl (33.0-37.0); MEAN PLATELET VOLUME 12.2 fl (9.6-12.3); MONO # 0.8 10*3/uL (0.1-1.0); MONO % 14.6 % (3.0-9.0); NEUT # 3.6 10*3/uL (2.3-7.9); NEUT % 62.9 % (47.0-73.0); PLATELET COUNT AUTOMATED 98 10*3/uL (130-400); RED BLOOD COUNT 2.82 10*6/uL (4.10-5.10); RED CELL DISTRI WIDTH 14.9 % (0-14.5); WHITE BLOOD COUNT 5.7 10*3/uL (4.8-10.8)
[2023-10-25] MEDS ORDERED: PEPCID40 MG PO (13:05)
[2023-10-25] MEDS ORDERED: TRESIBA100 UNIT/1 SQ (13:06)
[2023-10-25] MEDS ORDERED: HYDROCODONE-AC1 EAC1 PO (13:07)
[2023-10-25 13:10] LABS: POTASSIUM 4.1 mmol/L (3.4-5.1); TOTAL PROTEIN 6.2 gm/dL (6.0-8.0)
[2023-10-25] MEDS ORDERED: FLONASE ALLERG9.9 ML NAS (13:16)
[2023-10-25 13:46] LABS: BILIRUBIN Negative (Negative); BLOOD 3+ (Negative); CLARITY Cloudy (Clear); COLOR Yellow (Yellow); GLUCOSE Negative (Negative); KETONE Negative (Negative); LEUKO ESTERASE 3+ (Negative); NITRITE Positive (Negative); UROBILINOGEN 0.2 E.U./dl (0.0-1.0)
[2023-10-25 14:32] LABS: PH 8.5 (4.5-8.0)
[2023-10-25 14:37] LABS: RBC 51-100 rbc/hpf (0-2); TRIP PHOS CRYSTALS 4+
[2023-10-25 14:39] LABS: BACTERIA 4+
[2023-10-25] MEDS ORDERED: Acetaminophen/Hydrocodone 5 MG/325 MG TABLET PO ONE (14:40)
[2023-10-25] MEDS ORDERED: Ceftriaxone Sodium 1 GM/10 ML SYR IV ONE (14:45)
[2023-10-25] MEDS ORDERED: ACETAMINOPHEN 650 MG SUPP R PRN (15:40)
[2023-10-25] MEDS ORDERED: BISACODYL 10 MG SUPP R PRN (15:40)
[2023-10-25] MEDS ORDERED: Magnesium Hydroxide 30 ML UDC PO PRN (15:40)
[2023-10-25] MEDS ORDERED: BISACODYL 5 MG TAB PO PRN (15:40)
[2023-10-25] MEDS ORDERED: Acetaminophen/Hydrocodone 5 MG/325 MG TABLET PO PRN (15:40)
[2023-10-25] MEDS ORDERED: Ondansetron Hydrochloride 4 MG/2 ML VIAL IV PRN (15:40)
[2023-10-25] MEDS ORDERED: ACETAMINOPHEN 325 MG TAB PO PRN (15:40)
[2023-10-25] MEDS ORDERED: DEXTROSE 10 % IN WATER 250 ML IV PRN (18:05)
[2023-10-25 20:18] VITALS: BP 125/36
[2023-10-25] MEDS ORDERED: FUROSEMIDE 40 MG/4 ML VIAL IV SCH (21:00)
[2023-10-25] MEDS ORDERED: HEPARIN SODIUM 5,000 UNIT/ML VIAL SC SCH (22:00)
[2023-10-25] MEDS ORDERED: INSULIN LISPRO 1 UNIT/0.01 ML SQ SCH (22:00)
[2023-10-26] VITALS: BP 140/53
[2023-10-26 06:10] LABS: BASO % 0.2 % (0.0-1.0); EOS # 0.2 10*3/uL (0.0-0.4); EOS % 2.4 % (1.0-4.0); HEMATOCRIT 28.4 % (37.0-47.0); LYMPH # 1.3 10*3/uL (1.3-4.4); LYMPH % 15.2 % (27.0-41.0); MEAN CELL VOLUME 106.4 fl (81.0-99.0); MEAN PLATELET VOLUME 12.6 fl (9.6-12.3); MONO # 1.3 10*3/uL (0.1-1.0); MONO % 15.3 % (3.0-9.0); NEUT # 5.5 10*3/uL (2.3-7.9); NEUT % 66.4 % (47.0-73.0); PLATELET COUNT AUTOMATED 101 10*3/uL (130-400); RED BLOOD COUNT 2.67 10*6/uL (4.10-5.10); RED CELL DISTRI WIDTH 14.9 % (0-14.5); WHITE BLOOD COUNT 8.3 10*3/uL (4.8-10.8)
[2023-10-26 06:29] LABS: POTASSIUM 3.7 mmol/L (3.4-5.1); TOTAL PROTEIN 5.5 gm/dL (6.0-8.0)
[2023-10-26 07:43] LABS: VITAMIN D, 25-HYDROXY 50.4 ng/mL (30-100)
[2023-10-26 08:00] VITALS: BP 129/35
[2023-10-26] MEDS ORDERED: Vitamin D 1,000 IU TAB (25 MCG) PO SCH (10:00)
[2023-10-26] MEDS ORDERED: CARVEDILOL 25 MG TAB PO SCH (10:00)
[2023-10-26] MEDS ORDERED: hydrALAZINE hydrochloride 50 MG TAB PO SCH (10:00)
[2023-10-26] MEDS ORDERED: FAMOTIDINE 20 MG TAB PO SCH (10:00)
[2023-10-26] MEDS ORDERED: ALLOPURINOL 100 MG TAB PO SCH (10:00)
[2023-10-26] MEDS ORDERED: ASPIRIN ENTERIC COATED 81 MG TAB PO SCH (10:00)
[2023-10-26 11:27] VITALS: BP 117/43
[2023-10-26 15:40] VITALS: BP 104/40
[2023-10-26] MEDS ORDERED: Ceftriaxone Sodium 1 GM in SYRINGE INFUSION 10 ML IV SCH (16:00)
[2023-10-26 20:00] VITALS: BP 133/36
[2023-10-26] MEDS ORDERED: ATORVASTATIN CALCIUM 40 MG TABLET PO SCH (22:00)
[2023-10-26] MEDS ORDERED: LATANOPROST 0.005% 2.5 ML BOTTLE INTRAOC SCH ×2 (22:00)
[2023-10-27] VITALS: BP 127/33
[2023-10-27 05:23] LABS: POTASSIUM 3.9 mmol/L (3.4-5.1)
[2023-10-27 06:12] LABS: BASO % 0.4 % (0.0-1.0); EOS # 0.4 10*3/uL (0.0-0.4); EOS % 6.2 % (1.0-4.0); HEMATOCRIT 28.1 % (37.0-47.0); LYMPH # 1.4 10*3/uL (1.3-4.4); LYMPH % 24.6 % (27.0-41.0); MEAN CELL VOLUME 107.3 fl (81.0-99.0); MEAN CORPUSCULAR HGB 33.6 pg (27.0-31.0); MEAN CORPUSCULAR HGB CONC 31.3 g/dl (33.0-37.0); MEAN PLATELET VOLUME 12.7 fl (9.6-12.3); MONO # 1.1 10*3/uL (0.1-1.0); MONO % 18.7 % (3.0-9.0); NEUT # 2.8 10*3/uL (2.3-7.9); NEUT % 49.7 % (47.0-73.0); PLATELET COUNT AUTOMATED 94 10*3/uL (130-400); RED BLOOD COUNT 2.62 10*6/uL (4.10-5.10); RED CELL DISTRI WIDTH 14.8 % (0-14.5); WHITE BLOOD COUNT 5.6 10*3/uL (4.8-10.8)
[2023-10-27 08:00] VITALS: BP 136/38
[2023-10-27 12:00] VITALS: BP 144/30
[2023-10-27] MEDS ORDERED: Menthol/Zinc Oxide 4 GM THIN T PRN (13:35)
[2023-10-27 16:00] VITALS: BP 166/31
[2023-10-27 20:00] VITALS: BP 151/31
[2023-10-27] MEDS ORDERED: Menthol/Zinc Oxide 4 GM THIN T SCH (22:00)
[2023-10-28] VITALS: BP 146/29
[2023-10-28 06:16] LABS: FREE T4 1.14 ng/dl (0.89-1.76)
[2023-10-28 08:00] VITALS: BP 154/34
[2023-10-28 12:00] VITALS: BP 117/34
[2023-10-28 16:00] VITALS: BP 124/42
[2023-10-28] MEDS ORDERED: FUROSEMIDE 40 MG TAB PO SCH (18:00)
[2023-10-28 20:00] VITALS: BP 127/35
[2023-10-29] VITALS: BP 130/38
[2023-10-29 06:02] LABS: BASO % 0.4 % (0.0-1.0); EOS # 0.4 10*3/uL (0.0-0.4); HEMATOCRIT 27.9 % (37.0-47.0); LYMPH # 1.2 10*3/uL (1.3-4.4); LYMPH % 22.2 % (27.0-41.0); MEAN CELL VOLUME 106.1 fl (81.0-99.0); MEAN CORPUSCULAR HGB 33.5 pg (27.0-31.0); MEAN CORPUSCULAR HGB CONC 31.5 g/dl (33.0-37.0); MEAN PLATELET VOLUME 12.6 fl (9.6-12.3); MONO # 0.9 10*3/uL (0.1-1.0); MONO % 17.1 % (3.0-9.0); NEUT # 2.9 10*3/uL (2.3-7.9); NEUT % 52.1 % (47.0-73.0); PLATELET COUNT AUTOMATED 94 10*3/uL (130-400); RED BLOOD COUNT 2.63 10*6/uL (4.10-5.10); RED CELL DISTRI WIDTH 14.6 % (0-14.5); WHITE BLOOD COUNT 5.5 10*3/uL (4.8-10.8)
[2023-10-29] MEDS ORDERED: LIDOCAINE 1 EA PATCH T ONE (06:40)
[2023-10-29 08:00] VITALS: BP 117/36
[2023-10-29] MEDS ORDERED: FUROSEMIDE40 MG PO (10:51)
[2023-10-29] MEDS ORDERED: CEPHALEXIN500 M1 PO (10:52)
== END 2023-10-29 12:18 | disposition home health service (06) | DRG 292 ==
LOC: ED 11:44 → EDHOLD 15:16 → ICCU 15:16
PROVIDERS: Family Medicine; Internal Medicine; Physician Assistant Medical; Student in an Organized Health Care Education/Training Program; ADMIT Internal Medicine; ATTEND Internal Medicine
DX: I50.33 Acute on chronic diastolic (congestive) heart failure (principal); N17.9 Acute kidney failure, unspecified; N39.0 Urinary tract infection, site not specified; Z16.29 Resistance to other single specified antibiotic; K21.9 Gastro-esophageal reflux disease without esophagitis; D53.9 Nutritional anemia, unspecified; E11.65 Type 2 diabetes mellitus with hyperglycemia; E11.22 Type 2 diabetes mellitus with diabetic chronic kidney disease; B96.4 Proteus (mirabilis) (morganii) as the cause of diseases classified elsewhere; L89.322 Pressure ulcer of left buttock, stage 2; D69.6 Thrombocytopenia, unspecified; R79.89 Other specified abnormal findings of blood chemistry; E83.41 Hypermagnesemia; R31.9 Hematuria, unspecified; N18.31 Chronic kidney disease, stage 3a; I25.10 Atherosclerotic heart disease of native coronary artery without angina pectoris; E78.5 Hyperlipidemia, unspecified; Z90.710 Acquired absence of both cervix and uterus; Z90.49 Acquired absence of other specified parts of digestive tract; Z95.1 Presence of aortocoronary bypass graft; Z82.49 Family history of ischemic heart disease and other diseases of the circulatory system; Z88.2 Allergy status to sulfonamides; Z79.899 Other long term (current) drug therapy; Z79.1 Long term (current) use of non-steroidal anti-inflammatories (NSAID); Z79.82 Long term (current) use of aspirin; Z79.4 Long term (current) use of insulin; Z83.3 Family history of diabetes mellitus

== ENCOUNTER 2024-06-03 11:18 | Inpatient (IN) | payer MEDICARE ==
[~2024-06-03] VITALS: Ht 149.9 cm; Wt 69.6 kg
[~2024-06-03 11:18] MED LIST changes: +ADMELOG100 UNIT/1 SQ; +AMOXICILLIN250 MG PO; +CEPHALEXIN500 M1 PO; +FLONASE ALLERG9.9 ML NAS; +FUROSEMIDE80 MG PO; +PEPCID40 MG PO; +TRESIBA100 UNIT/1 SQ
[2024-06-03 11:21] VITALS: BP 121/89
[2024-06-03] MEDS ORDERED: CEPHALEXIN500 M1 PO (11:37)
[2024-06-03 12:25] LABS: BASO % 0.1 % (0.0-1.0); EOS # 0.7 10*3/uL (0.0-0.4); EOS % 9.3 % (1.0-4.0); MEAN CELL VOLUME 105.1 fl (81.0-99.0); MEAN CORPUSCULAR HGB 33.1 pg (27.0-31.0); MEAN CORPUSCULAR HGB CONC 31.5 g/dl (33.0-37.0); MEAN PLATELET VOLUME 10.9 fl (9.6-12.3); MONO % 12.6 % (3.0-9.0); NEUT % 50.3 % (47.0-73.0); PLATELET COUNT AUTOMATED 235 10*3/uL (130-400); RED BLOOD COUNT 2.57 10*6/uL (4.10-5.10); RED CELL DISTRI WIDTH 15.9 % (0-14.5); WHITE BLOOD COUNT 7.9 10*3/uL (4.8-10.8)
[2024-06-03 12:43] LABS: POTASSIUM 4.3 mmol/L (3.4-5.1)
[2024-06-03] MEDS ORDERED: LEVOFLOXACIN 50 ML IV ONE (12:55)
[2024-06-03] MEDS ORDERED: Vancomycin Hydrochloride 250 ML IV ONE (12:55)
[2024-06-03] MEDS ORDERED: SODIUM CHLORIDE 0.9% 1,000 ML IV ONE (12:55)
[2024-06-03] MEDS ORDERED: ACETAMINOPHEN 325 MG TAB PO PRN (13:20)
[2024-06-03] MEDS ORDERED: Ondansetron Hydrochloride 4 MG/2 ML VIAL IV PRN (13:20)
[2024-06-03] MEDS ORDERED: Magnesium Hydroxide 30 ML UDC PO PRN (13:20)
[2024-06-03] MEDS ORDERED: SODIUM CHLORIDE 0.9% 500 ML IV ONE (14:05)
[2024-06-03 14:16] LABS: BILIRUBIN Negative (Negative); BLOOD 1+ (Negative); CLARITY Cloudy (Clear); COLOR Yellow (Yellow); GLUCOSE Negative (Negative); KETONE Trace (Negative); LEUKO ESTERASE 3+ (Negative); NITRITE Negative (Negative); SPECIFIC GRAVITY 1.015 (1.001-1.030); UROBILINOGEN 0.2 E.U./dl (0.0-1.0)
[2024-06-03 14:18] VITALS: BP 138/58
[2024-06-03 14:37] LABS: BACTERIA TRACE; WBC TNTC wbc/hpf (0-5)
[2024-06-03] MEDS ORDERED: Acetaminophen/Oxycodone 5 MG/325 MG TABLET PO PRN (17:30)
[2024-06-03] MEDS ORDERED: DEXTROSE 10 % IN WATER 250 ML IV PRN (17:50)
[2024-06-03 18:00] VITALS: BP 136/40
[2024-06-03 20:00] VITALS: BP 122/32
[2024-06-03] MEDS ORDERED: HEPARIN SODIUM 250 ML IV SCH (21:45)
[2024-06-03] MEDS ORDERED: ASPIRIN 325 MG ENTERIC COATED PO ONE (21:45)
[2024-06-03] MEDS ORDERED: ATORVASTATIN CALCIUM 40 MG TABLET PO SCH (22:00)
[2024-06-03] MEDS ORDERED: HEPARIN SODIUM 5,000 UNIT/ML VIAL SC SCH (22:00)
[2024-06-03] MEDS ORDERED: CARVEDILOL 25 MG TAB PO SCH (22:00)
[2024-06-03] MEDS ORDERED: INSULIN LISPRO 1 UNIT/0.01 ML SQ SCH (22:00)
[2024-06-04] VITALS: BP 125/23
[2024-06-04 04:31] LABS: BASO % 0.2 % (0.0-1.0); EOS # 0.7 10*3/uL (0.0-0.4); EOS % 8.6 % (1.0-4.0); MEAN CORPUSCULAR HGB 33.3 pg (27.0-31.0); MEAN CORPUSCULAR HGB CONC 31.2 g/dl (33.0-37.0); MEAN PLATELET VOLUME 11.9 fl (9.6-12.3); MONO # 1.1 10*3/uL (0.1-1.0); MONO % 12.9 % (3.0-9.0); NEUT # 4.5 10*3/uL (2.3-7.9); NEUT % 55.1 % (47.0-73.0); PLATELET COUNT AUTOMATED 216 10*3/uL (130-400); RED BLOOD COUNT 2.43 10*6/uL (4.10-5.10); RED CELL DISTRI WIDTH 16.1 % (0-14.5); WHITE BLOOD COUNT 8.2 10*3/uL (4.8-10.8)
[2024-06-04 05:59] LABS: POTASSIUM 4.1 mmol/L (3.4-5.1); TOTAL PROTEIN 5.4 gm/dL (6.0-8.0)
[2024-06-04 08:00] VITALS: BP 130/80
[2024-06-04] MEDS ORDERED: Acetaminophen/Oxycodone Hydr 7.5 MG/325 MG TABLET PO PRN (09:45)
[2024-06-04] MEDS ORDERED: FAMOTIDINE 20 MG TAB PO SCH (10:00)
[2024-06-04] MEDS ORDERED: UBIDECARENONE 100 MG PO SCH (10:00)
[2024-06-04] MEDS ORDERED: ASPIRIN ENTERIC COATED 81 MG TAB PO SCH (10:00)
[2024-06-04] MEDS ORDERED: ALLOPURINOL 100 MG TAB PO SCH (10:00)
[2024-06-04] MEDS ORDERED: FUROSEMIDE 40 MG TAB PO SCH (10:00)
[2024-06-04 12:00] VITALS: BP 132/86
[2024-06-04] MEDS ORDERED: LEVOFLOXACIN 50 ML IV SCH ×2 (14:00→22:00)
[2024-06-04 16:00] VITALS: BP 130/50
[2024-06-04 20:00] VITALS: BP 131/32
[2024-06-04] MEDS ORDERED: FOAM BANDAGE 1 EACH BANDAGE T ONE (23:48)
[2024-06-04 23:50] VITALS: BP 126/39
[2024-06-05] MEDS ORDERED: CHAIR CUSHION DEVICE ONE (00:14)
[2024-06-05] MEDS ORDERED: HEEL PROTECTOR DEVICE ONE (00:14)
[2024-06-05 05:43] LABS: POTASSIUM 4.1 mmol/L (3.4-5.1)
[2024-06-05 06:22] LABS: BASO % 0.1 % (0.0-1.0); EOS # 0.5 10*3/uL (0.0-0.4); EOS % 5.2 % (1.0-4.0); HEMATOCRIT 23.4 % (37.0-47.0); MEAN CELL VOLUME 105.9 fl (81.0-99.0); MEAN CORPUSCULAR HGB CONC 31.2 g/dl (33.0-37.0); MONO # 1.3 10*3/uL (0.1-1.0); NEUT # 5.4 10*3/uL (2.3-7.9); NEUT % 59.1 % (47.0-73.0); PLATELET COUNT AUTOMATED 216 10*3/uL (130-400); RED BLOOD COUNT 2.21 10*6/uL (4.10-5.10); WHITE BLOOD COUNT 9.2 10*3/uL (4.8-10.8)
[2024-06-05 08:00] VITALS: BP 110/30
[2024-06-05 12:00] VITALS: BP 105/35
[2024-06-05] MEDS ORDERED: MORPHINE Sulfate 2 MG/ML SYR IV PRN (13:15)
[2024-06-05] MEDS ORDERED: OXYCODONE-ACET1 EACH PO (15:20)
[2024-06-06] MEDS ORDERED: Vancomycin Hydrochloride 1,000 MG in SODIUM CHLORIDE 0.9% 250 ML IV SCH (01:00)
== END 2024-06-05 16:08 | disposition hospice, inpatient (51) | DRG 280 ==
LOC: ED 11:18 → EDHOLD 13:08 → 4E 13:08 → EDHOLD 13:09 → 4E 17:22
PROVIDERS: Physician Assistant Medical; Student in an Organized Health Care Education/Training Program; ADMIT Internal Medicine; ATTEND Internal Medicine
DX: I21.4 Non-ST elevation (NSTEMI) myocardial infarction (principal); G93.41 Metabolic encephalopathy; N17.0 Acute kidney failure with tubular necrosis; N30.01 Acute cystitis with hematuria; E87.1 Hypo-osmolality and hyponatremia; I50.42 Chronic combined systolic (congestive) and diastolic (congestive) heart failure; I13.0 Hypertensive heart and chronic kidney disease with heart failure and stage 1 through stage 4 chronic kidney disease, or unspecified chronic kidney disease; D64.9 Anemia, unspecified; Z66 Do not resuscitate; I25.10 Atherosclerotic heart disease of native coronary artery without angina pectoris; E11.22 Type 2 diabetes mellitus with diabetic chronic kidney disease; M1A.39X0 Chronic gout due to renal impairment, multiple sites, without tophus (tophi); M48.07 Spinal stenosis, lumbosacral region; E78.2 Mixed hyperlipidemia; M46.1 Sacroiliitis, not elsewhere classified; L89.150 Pressure ulcer of sacral region, unstageable; B95.2 Enterococcus as the cause of diseases classified elsewhere; M54.50 Low back pain, unspecified; K21.9 Gastro-esophageal reflux disease without esophagitis; E11.65 Type 2 diabetes mellitus with hyperglycemia; E83.41 Hypermagnesemia; N18.32 Chronic kidney disease, stage 3b; G89.29 Other chronic pain; Z88.8 Allergy status to other drugs, medicaments and biological substances; Z91.09 Other allergy status, other than to drugs and biological substances; Z79.899 Other long term (current) drug therapy; Z79.01 Long term (current) use of anticoagulants; Z79.2 Long term (current) use of antibiotics; Z90.49 Acquired absence of other specified parts of digestive tract; Z90.710 Acquired absence of both cervix and uterus; Z95.1 Presence of aortocoronary bypass graft; Z98.891 History of uterine scar from previous surgery; Z83.3 Family history of diabetes mellitus; Z82.49 Family history of ischemic heart disease and other diseases of the circulatory system; Z98.42 Cataract extraction status, left eye; Z98.41 Cataract extraction status, right eye; Z79.4 Long term (current) use of insulin

== ENCOUNTER 2024-06-05 16:21 | Inpatient (IN) | payer OTHER ==
[~2024-06-05] VITALS: Ht 149.9 cm; Wt 66.8 kg
[2024-06-05 16:00] VITALS: BP 120/40
[~2024-06-05 16:21] MED LIST changes: +OXYCODONE-ACET1 EACH PO
[2024-06-05] MEDS ORDERED: MORPHINE Sulfate 2 MG/ML SYR IV PRN (17:45)
[2024-06-05] MEDS ORDERED: BISACODYL 10 MG SUPP R PRN (18:00)
[2024-06-05] MEDS ORDERED: ACETAMINOPHEN 650 MG SUPP R PRN (18:00)
[2024-06-05] MEDS ORDERED: HYOSCYAMINE SULFATE 0.125 MG TAB SL PRN (18:05)
[2024-06-05] MEDS ORDERED: LORazepam 0.5 MG TAB PO PRN (18:10)
[2024-06-05 20:00] VITALS: BP 127/45
[2024-06-05] MEDS ORDERED: MORPHINE Sulfate 2 MG/ML SYR IV SCH (20:00)
[2024-06-06] VITALS: BP 139/31
[2024-06-06 08:00] VITALS: BP 88/61
[2024-06-06] MEDS ORDERED: SODIUM CHLORIDE 0.9% 1,000 ML IV ONE (10:50)
[2024-06-06] MEDS ORDERED: MORPHINE Sulfate 50 MG in SODIUM CHLORIDE 0.9% 45 ML IV SCH (11:00)
[2024-06-06 16:00] VITALS: BP 124/24
[2024-06-06] MEDS ORDERED: MORPHINE Sulfate 2 MG/ML SYR IV PRN (16:01)
[2024-06-07] VITALS: BP 105/26
[2024-06-07 08:00] VITALS: BP 109/35
[2024-06-07 16:00] VITALS: BP 90/14
[2024-06-07] MEDS ORDERED: SODIUM CHLORIDE 0.9% 1,000 ML IV ONE (19:55)
[2024-06-08] VITALS: BP 168/18
[2024-06-08] MEDS ORDERED: LORazepam 0.5 MG TAB SL PRN (04:46)
[2024-06-08 08:00] VITALS: BP 134/62
[2024-06-08] MEDS ORDERED: LORazepam 2 MG/ML VIAL IV ONE (15:05)
[2024-06-08] MEDS ORDERED: LORazepam 2 MG/ML VIAL IV PRN (16:05)
[2024-06-08] MEDS ORDERED: LORazepam 2 MG/ML VIAL IV SCH (20:00)
[2024-06-09] MEDS ORDERED: SODIUM CHLORIDE 0.9% 1,000 ML IV ONE (04:10)
[2024-06-09] MEDS ORDERED: ATROPINE SULFATE 1% 2 ML BOTTLE SL PRN (07:20)
[2024-06-09 08:00] VITALS: BP 87/36
[2024-06-09 16:00] VITALS: BP 89/37
[2024-06-09] MEDS ORDERED: MORPHINE Sulfate 100 MG in SODIUM CHLORIDE 0.9% 90 ML IV SCH (20:00)
== END 2024-06-09 22:44 ==
LOC: 4E 16:21
PROVIDERS: ADMIT Student in an Organized Health Care Education/Training Program; ATTEND Student in an Organized Health Care Education/Training Program
DX: I21.4 Non-ST elevation (NSTEMI) myocardial infarction (principal); G93.41 Metabolic encephalopathy; N17.0 Acute kidney failure with tubular necrosis; N18.6 End stage renal disease; I13.2 Hypertensive heart and chronic kidney disease with heart failure and with stage 5 chronic kidney disease, or end stage renal disease; N30.00 Acute cystitis without hematuria; E87.1 Hypo-osmolality and hyponatremia; I50.32 Chronic diastolic (congestive) heart failure; A51.5 Early syphilis, latent; D53.9 Nutritional anemia, unspecified; E83.41 Hypermagnesemia; E11.65 Type 2 diabetes mellitus with hyperglycemia; E11.69 Type 2 diabetes mellitus with other specified complication; E11.22 Type 2 diabetes mellitus with diabetic chronic kidney disease; I25.10 Atherosclerotic heart disease of native coronary artery without angina pectoris; N18.30 Chronic kidney disease, stage 3 unspecified; K21.9 Gastro-esophageal reflux disease without esophagitis; Z66 Do not resuscitate; Z51.5 Encounter for palliative care; Z79.4 Long term (current) use of insulin